=== PATIENT | male | born 1975 | race Caucasian/White ===

== ENCOUNTER → 2016-07-07 | Outpatient (CLI) | payer BC ==
--- NOTE | 2016-07-07 10:47 | DIAGNOSTIC IMAGING REPORT ---
CHEST 2 VIEWS ROUTINE CLINICAL HISTORY: R05 [id number] [id number] COMPARISON STUDY: No previous studies for comparison. FINDINGS: Mild emphysematous change. Lungs are clear. Diaphragms are smooth. No evidence for cardiac enlargement. IMPRESSION: Mild emphysematous change. No acute process. Electronically signed by: Fredy Heaton M.D. 07/07/2016 10:46 AM Dictated Date/Time: 07/07/2016 10:44 AM
== END | disposition home or self-care (01) ==
LOC: C.RADBC 10:28
PROVIDERS: ATTEND Nurse Practitioner Family
DX: R05 Cough (principal)